=== PATIENT | female | born 1950 | race Caucasian/White ===

== ENCOUNTER 2022-09-26 20:40 | Emergency (ER) | payer MEDICARE, SELFPAY ==
--- NOTE | 2022-09-26 20:37 | ECG_ITS ---
APPROVED REPORT Exam: Resting ECG HR:61 bpm ECG Measurements Heart Rate 61 AXES MO 128 P 3 QRSd 86 QRS 72 QT 412 T 64 QTc 416 Conclusion SINUS RHYTHM POSSIBLE RIGHT VENTRICULAR CONDUCTION DELAY [RSR (QR) IN V1/V2] BORDERLINE ECG UNCONFIRMED REPORT Electronically signed by : Elmer Pang MD 09/29/2022 09:00:31
[2022-09-26 20:40] VITALS: BP 227/102; PULSE 67; RESP 18; TEMP 36.7; O2SAT 99; BMI 25.7
[2022-09-26 21:03] VITALS: PULSE 70
--- NOTE | 2022-09-26 21:05 | XR_ITS ---
PROCEDURE INFORMATION: Exam: XR Chest Exam date and time: 09/26/2022 9:05 PM Age: 72 years old Clinical indication: Sternal or substernal pain; Patient HX: C/O intermittent chest pain; Additional info: Resolved chest pain, HTN TECHNIQUE: Imaging protocol: Radiologic exam of the chest. Views: 2 views. COMPARISON: No relevant prior studies available. FINDINGS: Lungs: Unremarkable. No consolidation. Pleural spaces: Unremarkable. No pleural effusion. No pneumothorax. Heart/Mediastinum: Unremarkable. No cardiomegaly. Bones/joints: Unremarkable. IMPRESSION: No acute findings.
[2022-09-26 21:11] LABS: Microscopic, Urine URINE MICROSCOPIC (MICROSCOPIC)
[2022-09-26 21:19] LABS: Alanine Aminotransferase 28 U/L (12-78); Albumin Level 4.8 g/dl (3.5-5.0); Alkaline Phosphatase 80 U/L (38-126); Anion Gap 11.6 mEq/L (5-15); Aspartate Amino Transferase 35 U/L (14-36); Bilirubin,Direct 0.2 mg/dl (0.0-0.4); Bilirubin,Indirect 0.1 mg/dL (0.0-0.9); Bilirubin,Total 0.3 mg/dl (0.2-1.3); Bilirubin,Unconjugated 0.2 mg/dL (0.0-1.1); Blood Urea Nitrogen 10 mg/dl (7-17); Carbon Dioxide 28 mmol/L (22.0-30.0); Chloride 104 mmol/L (98-107); Creatinine Clearance Estimated 56 mL/min (50-200); Estimated Glomerular Filt Rate 62 ml/min (>60); GFR (African American) 75 ML/MIN (>60); Glucose 116 mg/dl (74-100); Potassium 3.6 mmoL/L (3.5-5.1); Sodium 140 mmol/L (136-145); Total Protein,Serum 7.7 g/dl (6.3-8.2)
[2022-09-26 21:23] LABS: Appearance,Urine CLEAR (Clear); Bilirubin,Urine Negative (Negative); Blood, Urine Negative (Negative); Color,Urine YELLOW (Yellow); Glucose,Urine (UA) Negative (Negative); Ketones,Urine Negative (Negative); Leukocyte Esterase,Urine 2+ (Negative); Nitrate,Urine Negative (Negative); Protein,Urine Negative (Negative); Urobilinogen,Urine 0.2 EU/dl (0.2)
[2022-09-26 21:31] LABS: NT Pro Brain Natriuretic Pep. 216 pg/mL (0-125)
[2022-09-26 22:03] LABS: Troponin I < 0.01 ng/ml (0.00-0.034)
[2022-09-26 22:13] LABS: Basophils # 0.1 K/mm3 (0-0.2); Basophils % 1.4 % (0.1-2.0); Eosinophils # 0.1 K/mm3 (0.0-0.4); Eosinophils % 1.3 % (0.1-12.0); Hematocrit 46.2 % (37.0-47.0); Hemoglobin 15.1 g/dL (12.2-16.2); Lymphocytes # 2.5 K/mm3 (0.7-4.5); Lymphocytes % 33.5 % (10-50); Mean Corpuscular HGB Conc 32.7 g/dL (31.8-35.4); Mean Corpuscular Hemoglobin 29.8 pg (27.0-31.2); Mean Corpuscular Volume 91.1 fl (81-99); Mean Platelet Volume 7.8 fl (7.4-10.4); Monocytes # 0.4 K/mm3 (0.1-1.0); Monocytes % 5.6 % (1.7-9.3); Neutrophils # 4.3 K/mm3 (1.8-7.8); Neutrophils % 58.2 % (37.0-80.0); Platelet Count 290 K/mm3 (142-424); Red Blood Count 5.08 M/mm3 (4.20-5.40); Red Cell Distribution Width 13.9 % (11.5-17.5); White Blood Count 7.4 K/mm3 (4.8-10.8)
[2022-09-26 22:18] LABS: Bacteria,Urine Trace /lpf; Squamous Epithelial Cell,Urine Occasional #/hpf (0-5)
--- NOTE | 2022-09-26 22:20 | PC.NURSE ---
called lab to check on CBC & microscopic UA. They are re-running these tests
--- NOTE | 2022-09-26 23:43 | HMH.EDCP ---
Discharge Plan Disposition Chief Complaint: Chest Pain Prescriptions Prescriptions: No Action Unobtainable Referrals Follow up/Referrals: Dariel Wilder MD [Primary Care Provider] - See instructions Clinical Impressions Clinical Impression: Chest pain, Hypertensive urgency Instructions Patient Instructions: DI for Chest Pain Discharge ED Provider: Anirudh Wharton Chest Pain HPI General Chief Complaint: Chest Pain Stated Complaint: chest pain Time Seen by Provider: 09/26/22 23:43 Mode of Arrival: Family Vehicle Source of Information: Patient, Spouse and Medical Record Limitations: No Limitations Description of Symptoms (Recalled from ER Triage Doc. by RN): Pt c/o headache, blurry vision, and an earlier episode of chest pain that is now resolved. States she has gone several months with intermittent left chest wall pain. States it comes on and goes away for a long while . Pt has had a negative heart cath at [facility] > 10 years ago. States her BP has been very elevated lastely d/t her PCP office not sending in more BP medications. Pt states they never did send in my blood pressure medicines I don't know why . States they haven't checked back with PCP's office to as why they didn not refill medicines, state I think she was new . History of Present Illness HPI narrative: pt has upper abd pain over the last few weeks and chest pain dafne at night with palpitations - has been off bp meds complaint: chest pain indicative of cardiac Onset (ago): day(s) Duration: intermittent Activity at onset: during rest Pain location: epigastric Severity: moderate Quality: dull Risk Factors for CAD: Hypertension and Family Hx of CAD Treatments prior to or on arrival for Cardiac Chest Pain: none CONSTANCE Score for Non-Stemi Age of Patient: 70-79 years old Heart Rate: 50-69 bpm Systolic Blood Pressure: 160-199 mmHg Serum Creatinine: 0.80-1.19 mg/dl CHF Kill[place] Class: I-No CHF Other Risk Factors: None Non-Stemi Risk Score: 95 Risk Stratification: 1-108 = Low Risk Related Data On Oral Contraceptives: No Home Medications Medication Instructions Recorded Confirmed Unobtainable 09/26/22 09/26/22 Allergies Allergy/AdvReac Type Severity Reaction Status Date / Time No Known Allergies Allergy Verified 09/26/22 21:00 [facility] Disclaimer: The information contained in this section may have been updated after the patient was seen, as this information can be updated by other users. Social History Smoking Status: Never smoker alcohol intake: never current occupational status: retired Travel in the last 8 weeks: None ROS Obtained: Yes All systems reviewed & no additional complaints except as documented Physical Exam General General appearance: alert Head Head exam: normocephalic Eye Eye exam: Present PERRL and EOMI ENT ENT exam: Present mucous membranes moist Neck Neck exam: Present trachea midline Respiratory Respiratory exam: Present normal lung sounds bilaterally; Absent respiratory distress Cardiovascular Cardiovascular exam: Present regular rate, systolic murmur and +S4 Abdominal Exam Abdominal exam: Present soft; Absent tenderness Extremities Exam Extremities exam: Present full ROM Neurological Exam Neurological exam: Present alert, oriented X3 and CN II-XII intact; Absent motor sensory deficit Psychiatric Psychiatric exam: Present normal affect Skin Skin exam: Absent rash Medical Decision Making Medical Records Medical records reviewed: Yes I reviewed the patient's medical records. Alex Inquiry Pt receiving controlled substance: No Vital Signs: 09/26/22 20:40 09/26/22 21:03 Temperature 98.0 F Temperature Source Oral Pulse Rate 70 Pulse Rate [Right] 67 Respiratory Rate 18 Blood Pressure [Right Arm] 227/102 H Blood Pressure Mean [Right Arm] 143 Blood Pressure Source [Right Arm] Automatic Cuff 02 Sat by Pulse Oximetry 99 Oxygen Delivery Method Room Air
[2022-09-26 23:57] LABS: Amylase 52 U/L (30-110); Lipase 58 U/L (23-300)
[2022-09-27 00:29] LABS: Thyroid Stimulating Hormone 1.54 uIU/mL (0.465-4.68)
[2022-09-27 00:30] LABS: Troponin I < 0.01 ng/ml (0.00-0.034)
[2022-09-27 01:09] VITALS: BP 162/85; PULSE 52; RESP 17; TEMP 36.6; O2SAT 98
== END 2022-09-27 01:19 | disposition home or self-care (01) ==
PROVIDERS: Emergency Provider Emergency Medicine; PCP Family Medicine
DX: R07.9 Chest pain, unspecified (principal); R94.31 Abnormal electrocardiogram [ECG] [EKG]; R00.2 Palpitations; H53.8 Other visual disturbances; R10.13 Epigastric pain; R51.9 Headache, unspecified; I16.0 Hypertensive urgency; I10 Essential (primary) hypertension; R01.1 Cardiac murmur, unspecified; E78.5 Hyperlipidemia, unspecified; R06.00 Dyspnea, unspecified; Z79.52 Long term (current) use of systemic steroids; Z79.899 Other long term (current) drug therapy; Z82.49 Family history of ischemic heart disease and other diseases of the circulatory system; Z83.3 Family history of diabetes mellitus
CPT/HCPCS: 71046; 80048; 80076; 81001; 82150; 83690; 83880; 84436; 84443; 84484; 85025; 87086; 87088; 87186; 93005; 93225; 93226; 99283

== ENCOUNTER → 2022-09-27 11:18 | Outpatient (CLI) | payer MEDICARE, SELFPAY ==
[2022-09-27 12:35] LABS: Alanine Aminotransferase 28 U/L (12-78); Albumin Level 4.7 g/dl (3.5-5.0); Alkaline Phosphatase 86 U/L (38-126); Aspartate Amino Transferase 33 U/L (14-36); Bilirubin,Direct 0.2 mg/dl (0.0-0.4); Bilirubin,Indirect 0.4 mg/dL (0.0-0.9); Bilirubin,Total 0.6 mg/dl (0.2-1.3); Bilirubin,Unconjugated 0.3 mg/dL (0.0-1.1); Chol/HDL Ratio 4.1 (1-3.5); Cholesterol 311 mg/dl (140-200); HDL Cholesterol 76 mg/dl (40-60); Total Protein,Serum 7.2 g/dl (6.3-8.2); Triglycerides 185 mg/dl (30-150); VLDL Cholesterol 37 mg/dL (0-40)
[2022-09-27 12:47] LABS: Direct LDL Cholesterol 181.79 mg/dL (100-129)
== END ==
PROVIDERS: PCP Family Medicine; Visit Provider Nurse Practitioner
DX: R06.00 Dyspnea, unspecified (principal); R07.9 Chest pain, unspecified; R94.31 Abnormal electrocardiogram [ECG] [EKG]
CPT/HCPCS: 36415; 80061; 80076

== ENCOUNTER → 2022-10-04 11:40 | Outpatient (CLI) | payer MEDICARE, SELFPAY ==
--- NOTE | 2022-10-04 11:40 | NM_ITS ---
APPROVED REPORT Exam: Nuclear Stress Test Indication: chest pain.short of breath..palpitations..fatigue Patient Location: Outpatient Stress Tech: Amanda Mcneal NM Tech:Soo Ramires, ARRT, RT (R)(N) Ht: 5 ft 4 in Wt: 147 lbs Bra Size: 38b HR: 63 bpm BP: 170/68 mmHg BSA: 1.72 m2 TID: 1.12 BMI: 25.2 History: chest pain.short of breath..palpitations..fatigue Procedure: Patient received a 0.4 mg of intravenous Lexiscan, resting heart rate 63 bpm, resting blood pressure 170/68 mmHg, with Lexiscan maximum heart rate achived was 91 bpm which is Less than 85 % of the maximum predicted heart rate and blood pressure was 170/68 mmHg. With Lexiscan, patient denied any complaint of chest pain. Electrocardiogram Resting electrocardiogram shows sinus bradycardia, with Lexiscan less than 1.[address] segment depression noted from the baseline EKG. The EKG portion of the Lexiscan is nondiagnostic. Cardiac Stress and Resting SPECT Images: Cardiac Stress and Resting SPECT images were obtained using technetium 99m Myoview 32.0 mCi stress and 10.50 mCi at rest. Gated SPECT for analysis of segmental wall motion and calculation of the ejection fraction also done. Prone images were also obtained. Cardiac stress and rest SPECT images uniform myocardial activity without segmental perfusion abnormality, computer the ejection fraction is over 65% with no regional wall motion abnormality, right ventricle is normal size and contractility. Conclusion: 1. The EKG portion of the Lexiscan is nondiagnostic. 2. No scintigraphic evidence of reversible ischemia seen, computer derived ejection fraction over 65% with no regional wall motion abnormality, right ventricle is normal size and contractility. 3. Normal Lexiscan Myoview study. Electronically signed by : Robin Chappell MD 10/04/2022 20:56:20
--- NOTE | 2022-10-04 11:40 | CA_ITS ---
APPROVED REPORT Exam: Pharmacologic Technologist: Amanda Mcneal Ht: 5 ft 4 in Wt: 152 lbs BSA: 1.74 m2 HR: 58 bpm BP: 170/68 mmHg Indications: Abnormal ekg, Shortness of Air Medical History Medications: Losartan,,,,, Stress Test Details Test: LEXISCAN HR Resting HR: 63 bpm Max Heart Rate (APMHR): 150.161475 bpm Max HR Achieved: 91 bpm Target HR (85% APMHR): 127.949565 bpm % of APMHR: 60.67 Recovery HR: 80 bpm BP Resting BP: 170.0/68.0 mmHg Max BP: 170.0/68.0 mmHg Recovery BP: 155.0/70.0 mmHg ECG Resting ECG: Sinus bradycardia, rightward axis Clinical Exercise duration: 04:00 min Highest Stage Achieved: Stress ECG Conclusion Symptoms: Mild chest discomfort, shortness of air, head discomfort. Arrhythmias/Ectopy: None ST-T Changes: NS T wave changes in anterolateral leads. Conclusion: Unremarkable Lexiscan stress. Myoview images reported separately. Test Summary REST . . . . . . . Resting REST 03:35 . . 63 . 170/ 68 . . Stage 1 . . . . . . . Myoview Injected Stage 1 01:00 . . 87 . . . . Stage 2 . . . . . . . chest pressure Stage 2 01:00 . . 88 . 142/ 66 . . Stage 3 01:00 . . 84 . 147/ 66 . . Stage 4 01:00 . . 80 . 142/ 70 . Stop exercise at 04:00 RECOVERY 01:00 . . 86 . . . . RECOVERY 02:00 . . 79 . 155/ 71 . . RECOVERY 03:00 . . 79 . 155/ 70 . . RECOVERY 03:20 . . 78 . 155/ 70 . . Electronically signed by : Robin Chappell MD 10/04/2022 20:53:56
--- NOTE | 2022-10-04 11:42 | CA_ITS ---
APPROVED REPORT EXAM: Comprehensive 2D, Doppler, and color-flow Echocardiogram Gill Net Stringer: Elvia Van CRT Ht: 5 ft 4 in Wt: 152lbs BSA: 1.74 BP: 142/71 mmHg Indications: Abnormal ECG, Chest Pain, Shortness of Breath, Hyperlipidemia, Hypertension/HDD Echo Enhancing Agent Indication: Rule out Shunt Agent(s) / Amount(s) Used: Agitated Saline cc Comments: B/S appears negative. 2D Dimensions LVOT 1.92 cm (M/F) 1.5-2.5 M-Mode Dimensions RVDd 2.09 cm (0.9-2.6) LA Diam 3.32 cm (1.9-4.0) LVDd 3.83 cm (3.5-5.7) Ao Diam 3.60 cm (2.0-3.7) LVDs 2.09 cm (3.5-5.7) IVSd 1.84 cm (0.6-1.1) PWd 1.12 cm (0.6-1.1) EF (Teich) 77.50% FS 45.40% EDV (Teich) 63.10 mL TAPSE 2.02 (<1.7) ESV (Teich) 14.20 mL LV Diastology E Decel Time 263.00 (160-240 msec) E/A Ratio 0.78 MED E' 6.70 (< 7 cm/sec) MED A' 14.90 cm/s E'/MED E' Ratio 11.79 (>14) LAT E' 6.80 (<10 cm/sec) LAT A' 17.60 cm/s E/LAT E' Ratio 11.62 (>14) Aortic Valve AO Peak GR. 9.70 mmHg Mitral Valve MV E Max Bart. 79.00 (40-130 cm/s) MV A Velocity 101.00 (40-130 cm/s) E/A Ratio 0.78 MV Decel. Time 263.00 (160-240 ms) MV PHT 77.00 ms Pulmonary Valve PV Peak Velocity 127.00 (50-150 cm/s) Tricuspid Valve TR P. Velocity 276.00 cm/s RAP Estimate 10.00 mmHg RVSP 40.50 mmHg Left Ventricle Left atrium is mildly enlarged, left ventricle is normal size, estimated ejection fraction 55% with no regional wall motion abnormality, grade 1 diastolic dysfunction seen without tissue Doppler evidence of raise left atrial pressure. Right Ventricle Right atrium and right ventricular mildly enlarged with normal contractility. Atria Intra-atrial septum is intact, there is no flow across central septum, agitated saline contrast study did not identify intracardiac shunt. Aortic Valve Aortic valve is minimally thickened and fibrosed there is no aortic stenosis aortic insufficiency. Mitral Valve Mitral valve grossly normal, there is trace mitral regurgitation. Tricuspid Valve Tricuspid valve is grossly normal, there is trace tricuspid regurgitation, tricuspid regurgitation jet velocity is inadequate for calculation of the right ventricular systolic pressure. Pulmonic Valve Pulmonic valve is poorly visualized. Great Vessels Aortic root is normal size. Inferior vena cava is poorly visualized. Pericardium No significant pericardial effusion noted. Conclusion 1. Mild biatrial enlargement, normal left ventricular size, mild concentric left ventricular hypertrophy, estimated ejection fraction 55% with no regional wall motion abnormality, grade 1 diastolic dysfunction seen without tissue Doppler evidence of raise left atrial pressure. 2. Mildly enlarged right ventricle with normal contractility. 3. Agitated saline contrast study did not identify intracardiac shunt. 4. Trace mitral and tricuspid regurgitation. 5. No significant pericardial effusion noted. Electronically signed by : Robin Chappell MD 10/04/2022 20:29:51
--- NOTE | 2022-10-04 13:35 | HMH.ITSHM ---
Current Home Medications as stated by this patient Ronel Pascual or personnel representative. []VORTIOXETINE TIZANIDINE ROSUVASTATIN QUETIAPINE POTASSIUM ONDANSETRON NITRO MELOXICAM HYDORCODONE DULOXETINE DEXLANSOPRAZOLE CARVEDILOL ASA ALPRAZOLAM ALBUTEROL
== END ==
PROVIDERS: PCP Family Medicine; Visit Provider Nurse Practitioner
DX: R06.00 Dyspnea, unspecified (principal); R07.9 Chest pain, unspecified; R94.31 Abnormal electrocardiogram [ECG] [EKG]
CPT/HCPCS: 78452; 93017; 93306; A9502; J2785

== ENCOUNTER → 2023-02-07 14:13 | Outpatient (CLI) | payer MEDICARE, SELFPAY ==
[2023-02-07 16:46] LABS: Anion Gap 17.8 mEq/L (5-15); Blood Urea Nitrogen 19 mg/dl (7-17); Calcium 9.6 mg/dl (8.4-10.2); Carbon Dioxide 29 mmol/L (22.0-30.0); Chloride 92 mmol/L (98-107); Estimated Glomerular Filt Rate 49 ml/min (>60); GFR (African American) 59 ML/MIN (>60); Glucose 89 mg/dl (74-100); Potassium 3.8 mmoL/L (3.5-5.1); Sodium 135 mmol/L (136-145)
== END ==
PROVIDERS: PCP Family Medicine; Visit Provider Physician Assistant
DX: E78.5 Hyperlipidemia, unspecified (principal); I10 Essential (primary) hypertension; I25.10 Atherosclerotic heart disease of native coronary artery without angina pectoris; R94.31 Abnormal electrocardiogram [ECG] [EKG]
CPT/HCPCS: 36415; 80048

== ENCOUNTER 2024-12-30 21:07 | Emergency (ER) | payer MEDICARE, SELFPAY ==
[2024-12-30 21:18] VITALS: BP 187/83; PULSE 52; RESP 18; TEMP 36.9; O2SAT 100; BMI 22.6
--- NOTE | 2024-12-30 21:29 | ECG_ITS ---
APPROVED REPORT Exam: Resting ECG HR:56 bpm ECG Measurements Heart Rate 56 AXES UT 153 P 64 QRSd 80 QRS 94 QT 452 T 69 QTc 443 Conclusion SINUS BRADYCARDIA BORDERLINE RIGHT AXIS DEVIATION [QRS AXIS > 90] POSSIBLE RIGHT VENTRICULAR CONDUCTION DELAY [RSR (QR) IN V1/V2] BORDERLINE ECG UNCONFIRMED REPORT Electronically signed by : OFE AGUDELO, 01/01/2025 05:15:13
--- NOTE | 2024-12-30 22:55 | HMH.EDGENADL ---
Discharge Plan Disposition Patient Disposition: Home, Self-Care Prescriptions Prescriptions: No Action aspirin [Adult Low Dose Aspirin] 81 mg tablet,delayed release (DR/EC) 81 mg PO DAILY Qty: 30 2RF losartan 100 mg tablet 100 mg PO DAILY Qty: 30 6RF hydrochlorothiazide 25 mg tablet 25 mg PO QDAY Qty: 90 3RF atorvastatin [Lipitor] 40 mg tablet 40 mg PO DAILY Qty: 30 2RF carvedilol [Coreg] 6.25 mg tablet 6.25 mg PO BID Qty: 60 2RF Rx Instructions: must administer with a meal/food Referrals Follow up/Referrals: Provider,Referral, MD [Primary Care Provider] - See instructions Activity Restrictions/Add. Instructions Additional Instructions/Restrictions: Please follow up with your primary care provider, please return to the emergency if your develop any new or worsening symptoms or become concerned for your health. Clinical Impressions Clinical Impression: Asymptomatic hypertension Instructions Patient Instructions: High Blood Pressure Print Language Print Language: Indonesian Discharge ED Provider: Aleksey Anguiano Adult HPI General Chief complaint: Skin/Abscess/Foreign Body Stated complaint: high blood pressure,back pain Time Seen by Provider: 12/30/24 22:55 Mode of Arrival: Ambulatory Source of Information: Patient Description of Symptoms (Recalled from ER Triage Doc. by RN): c/o high blood pressure x 2 days, Reports feeling a burning feeling to back and chest. Denies any shortness of breath. History of Present Illness HPI narrative: 74-year-old female with history of hypertension hyperlipidemia coronary artery disease dementia presents for high blood pressure. Her blood pressure got up to over 200 systolic at home earlier today and and so they decided to bring her in. She denies any symptoms such as chest pain abdominal pain shortness of breath headache vision changes etc. As far as they are aware she is only on losartan for blood pressure. On chart review she also has carvedilol and HCTZ listed. No recent changes to her blood pressure medications. Related Data Previous Rx's ?Medication ?Instructions ?Recorded aspirin 81 mg tablet,delayed 81 mg PO DAILY #30 tabs 10/11/22 release (Adult Low Dose Aspirin) losartan 100 mg tablet 100 mg PO DAILY #30 tabs 10/11/22 atorvastatin 40 mg tablet (Lipitor) 40 mg PO DAILY #30 tabs 12/20/22 hydrochlorothiazide 25 mg tablet 25 mg PO QDAY #90 tabs 01/17/23 carvedilol 6.25 mg tablet (Coreg) 6.25 mg PO BID #60 tabs 01/18/23 Allergies Allergy/AdvReac Type Severity Reaction Status Date / Time No Known Allergies Allergy Verified 02/07/23 13:45 [facility] Disclaimer: The information contained in this section may have been updated after the patient was seen, as this information can be updated by other users. Medical History Abnormal electrocardiogram [ECG] [EKG] Chest pain Dizziness Dyspnea HLD (hyperlipidemia) HTN (hypertension) Typical angina Family History Mother Cancer Diabetes Social History Smoking Status: Unknown if ever smoked alcohol intake: never current occupational status: retired Travel in the last 8 weeks: None Have you lived/traveled outside [place] in past 30 days?: No Contact w/someone who lives/traveled outside [place] past 30 days?: No Exposure to someone with infectious disease in past 14 days?: No Do you have a fever (greater than 100.4 F or 38 C)?: No Have you tested positive for COVID-19: No Exposed to someone with COVID-19 in past 14 days?: No Do you have a sore throat?: No Do you have a cough?: No Do you have any weakness?: No Do you have any diarrhea?: No Are you experiencing any unusual bleeding?: No Do you have any muscle aches/pain?: No Do you have any abdominal pain?: No Are you experiencing loss of taste or smell?: No Other Medical History Have you received the Pneumonia Vaccine: No ROS Obtained: Yes All systems reviewed & no additional complaints except as documented Physical Exam General General appearance: alert and in no apparent distress Head Head exam: atraumatic and normocephalic Eye Eye exam: Present normal appearance, PERRL and EOMI ENT ENT exam: Present normal oropharynx and normal external ear exam Neck Neck exam: Present normal inspection and full ROM Chest Chest inspection: Present normal inspection and symmetric chest wall rise; Absent tenderness Respiratory Respiratory exam: Present normal lung sounds bilaterally; Absent respiratory distress Cardiovascular Cardiovascular exam: Present regular rate and normal rhythm Abdominal Exam Abdominal exam: Present soft; Absent distention, tenderness or guarding Extremities Exam Extremities exam: Present normal inspection; Absent edema or joint swelling Back Exam Back exam: Present normal inspection; Absent tenderness Neurological Exam Neurological exam: Present alert and oriented X3; Absent motor sensory deficit Psychiatric Psychiatric exam: Present normal affect and normal mood Skin Skin exam: Present warm, dry and normal color Lymphatic Lymphatic Findings: no adenopathy Medical Decision Making Medical Records Medical records reviewed: Yes I reviewed the patient's medical records. Screening: Per USPSTF and CDC recommendations, given the prevalence of disease in our region, it is our hospital?s policy to screen for HIV and viral Hepatitis for all patients aged 18 and over and those with ongoing risk factors. Alex Inquiry Pt receiving controlled substance: No Alex was queried for this patient: No Vital Signs: 12/30/24 21:18 12/30/24 23:15 Temperature 98.4 F 97.8 F Temperature Source Oral Pulse Rate 52 L Pulse Rate [Right Brachial] 52 L Respiratory Rate 18 18 Blood Pressure 161/79 H Blood Pressure [Right Arm] 187/83 H Blood Pressure Mean [Right Arm] 117 Blood Pressure Source [Right Arm] Automatic Cuff Blood Pressure Position [Right Arm] Sitting 02 Sat by Pulse Oximetry 100 Oxygen Delivery Method Room Air Room Air Lab Data Lab results reviewed: Yes I reviewed the patient's lab results. Lab Results 12/30/24 21:46: HCV Ab CHARI w/Rflx PCR Qn Negative, HIV Ag/Ab Combo Qual Negative Orders (Tests/Meds): ORDERS Category Date Time Status HIV Combo Stat Lab 12/30/24 21:46 Completed Hepatitis C Ab Qual. W/ RFX Stat Lab 12/30/24 21:46 Completed Medical Decision Narrative: 74-year-old female history of hypertension hyperlipidemia coronary artery disease dementia presents for intermittent high blood pressure at home without any other symptoms. History was obtained via interactive discussion with patient, family, chart review. On arrival, patient is [afebrile, hemodynamically stable, satting appropriately, alert, oriented x4, GCS 15], moving all extremities spontaneously. Full physical exam performed and significant for no significant physical exam normalities. Blood pressure when I was in the room was 160 systolic. Differential includes but is not limited to hypertensive emergency, hypertensive urgency, asymptomatic hypertension. Patient's presentation is consistent with asymptomatic hypertension and so patient does not require further workup such as EKG blood work chest x-ray etc extensive and interactive discussion was had with patient and family regarding blood pressure management, and signs and symptoms of hypertensive emergency. Patient was encouraged to follow-up PCP for reassessment. Return precautions given. Procedures Risk/Benefits of Procedure(s) Were Explained: Yes Critical Care Critical Care Time Critical Care Time: No
[2024-12-30 23:15] VITALS: BP 161/79; PULSE 52; RESP 18; TEMP 36.6; O2SAT 98
[2024-12-30 23:47] LABS: HIV Combo NEGATIVE (Negative)
[2024-12-30 23:55] LABS: Hepatitis C Ab Qual. W/ RFX NEGATIVE (Negative)
== END 2024-12-30 23:17 | disposition home or self-care (01) ==
PROVIDERS: Emergency Medicine; Emergency Provider Emergency Medicine
DX: I10 Essential (primary) hypertension (principal)
CPT/HCPCS: 86803; 87389; 93005; 99283